=== PATIENT | male | born 1970 | race Caucasian/White ===

== ENCOUNTER 2025-06-30 08:35 | Emergency (ER) | payer BC, SELFPAY ==
--- NOTE | ~2025-06-30 | XR_ITS ---
XR foot RT min 3V 06/30/2025 09:24 Indication: No known injury. Right foot pain laterally. Procedure: 4 views right foot Comparison: No prior studies for comparison. Findings: No fracture, subluxation or dislocation. Lisfranc joint intact. No focal soft tissue abnorm ality. No foreign bodies. No soft tissue abnormality. No foreign bodies. Impression: 1: No acute bone or joint abnormality. Reviewed, dictated and finalized at location A. Impression: 1: No acute bone or joint abnormality.
--- OUTSIDE RECORDS SUMMARY | 2025-06-30 08:41 | XMS_ITS | Encounter Summary ---
Author Organization [facility] Address [address] [place] [address] Care Team Providers Care Clinical Law Professor Name Role Phone Fatou Chaudhry APN Primary Care Provider [phone] Riley Reaves DO Primary Care Provider [phone] Reason for Referral * Specialty Diagnoses / Procedures Referred By Carlos burnett Referred To Contact [facility]/ Referral ID Status Reason Start Date Expiration Date Visits Re quested Visits Authorized Encounter Details Date Type Department Care Team (Late st Contact Info) Description 01/28/2024 Outpatient Orders Only [facility] [address] [place] [phone] Fatou Chaudhry APN [address] [place] [address] [address] [place] [address] Social History Tobacco Use Types Packs/Day Years Used Date Smoking Tobacco: Never Passive Smoke Exposure: Never Smokeless Tobacco: Never Alcohol Use Standard Drinks/Week Comments Yes 0 (1 standard drink = 0.6 oz pur e alcohol) occasually Sex and Gender Information Value Date Recorded Sex Assigned at Not on file Legal Sex Male 16:17 EST Gender Identity Male 02/18/2024 7:35 EDT Sexual Orientation Unknown/Unavailable 7:56 EDT documented as of this encounter Plan of Treatment Upcoming Encounters Date Type Department Care Team (Late st Contact Info) Description 08/17/2025 9:00 EDT Office Visit [facility] [address] [place] [phone] Andres Frey MD [address] [place] [address] 6m follow up documented as of this encounter Procedures Procedure Name Priority Date/Time Associated Diagnosis Comments SCANNED EKG Routine 01/28/2024 16:06 EDT AMB REFERRAL TO CARDIOLOGY Routine 01/28/2024 14:47 EDT documented in this encounter Results * SCANNED EKG (01/28/2024 16:06 EDT) us Historical Provider ECG ORDERABLES Final Res ult * AMB REFERRAL TO CARDIOLOGY (01/28/2024 14:47 EDT) us Fatou Chaudhry APN OUTPATIENT REFERRAL ORDERABL ES Final Result documented in this encounter Visit Diagnoses Not on filedocumented in this encounter Care Teams Clinical Law Professor Relationship Specialty Start Date End Date Fatou Chaudhry APN [address] [facility] [place] [phone] PCP - General Nurse Practitioner 01/28/24 02/15/25 Riley Reaves DO [address] [place] [id number] PCP - General Family Medicine 02/16/25 documented as of this encounter
--- OUTSIDE RECORDS SUMMARY | 2025-06-30 08:41 | XMS_ITS | Encounter Summary ---
Author Organization [facility] Address [address] [place] [address] Care Team Providers Care Sr. Logistics Analyst Name Role Phone Jean Paul Riley Santiago ROB Primary Care Provider [phone] Encounter Details Date Type Department Care Team (Late Contact Info) Description 04/06/2025 Orders Only [facility] [address] [place] [phone] Provider, MD Camille [address] [place] [address] Social History Tobacco Use Types Packs/Day Years [...] 9:00 EDT Office Visit [facility] [address] [place] [phone] Andres Frey MD [address] [place] [phone] 6m follow up documented as of this encounter Procedures Procedure Name Priority Date/Time Associated Diagnosis Comments SCANNED EKG Routine 04/06/2025 10:10 EDT documented in this encounter Results * SCANNED EKG (04/06/2025 10:10 EDT) us Historical Provider ECG ORDERABLES Final Res ult documented in this encounter Visit Diagnoses Not on filedocumented in this encounter Care Teams Sr. Logistics Analyst Relationship Specialty Start Date End Date Riley Reaves DO [facility] [place] [address] [place] [id number] PCP - General Family Medicine 02/16/25 documented as of this encounter
--- OUTSIDE RECORDS SUMMARY | 2025-06-30 08:41 | XMS_ITS | Clinical Summary ---
Author Organization [facility] Address [address] [place] [address] Care Team Providers Care Food Service Helper Name Role Phone Riley Reaves DO Primary Care Provider [phone] Allergies No known active allergies Medications amLODIPine (NORVASC) 5 MG tabletIndicatio ns:Hypertension Take 5 mg daily by mouth Active atorvastatin (LIPITOR) 10 MG tabletIndicatio ns:Hyperlipidem ia Take 10 mg daily at 6pm by mouth Active olmesartan-hydr ochlorothiazide (BENICAR HCT) 40-12.5 MG per tabletIndicatio ns:Hypertension Take one Tablet daily by mouth 90 Tablet 1 5 Active acetaminophen (TYLENOL) 325 MG tabletIndicatio ns:Pain Take two Tablets (650 mg) every 4 hours as needed by mouth Indications: Pain 5 Active docusate sodium 100 MG CAPSIndications :Constipation Take one Capsule (100 mg) 2 times daily by mouth Indications: Constipation 5 Active sennosides (SENOKOT) 8.6 mg tabletIndicatio ns:Constipation Take two Tablets daily by mouth Indications: Constipation 5 Active gabapentin (NEURONTIN) 100 MG capsuleIndicati ons:Neuropathic Pain Take one Capsule (100 mg) every 12 hours by mouth Indications: Neuropathic Pain 5 Active celecoxib (CELEBREX) 200 MG capsuleIndicati ons:Inflammatio n Take one Capsule (200 mg) 2 times daily by mouth Indications: Inflammation 30 Capsule 5 Active cyclobenzaprine (FLEXERIL) 10 MG tabletIndicatio ns:Muscle Spasm Take one Tablet (10 mg) 3 times daily as needed by mouth for Muscle Spasms Indications: Muscle Spasm 30 Tablet Active oxyCODONE immediate release (ROXICODONE) 5 MG immediate release tabletIndicatio ns:s/p spine surgery 04/17/2025 Take one Tablet (5 mg) every 4 hours as needed by mouth Indications: s/p spine surgery 04/17/2025 30 Tablet Active Active Problems Problem Noted Date Diagnosed Date Needs pre-anesthesia assessment 04/17/2025 Primary hypertension 04/17/2025 Mixed hyperlipidemia 04/17/2025 Encounters Date Type Department Care Team Description 04/17/2025 15:40 EDT - 04/17/2025 20:44 EDT Surgery [facility] at [address] [address] Leo Mcclellan MD RIGHT SIDED LUMBAR 4-5 MINIMALLY INVASIVE TRANSFORAMINAL LUMBAR INTERBODY FUSION, NEUROMONITORING 04/17/2025 14:58 EDT Anesthesia Event [facility] at [address] [address] Dorian Santillan MD 04/17/2025 13:49 EDT - 04/18/2025 12:00 EDT Hospital Encounter [facility] at [address] [address] Leo Mcclellan MD Discharge Disposition: Home or Self Care 04/17/2025 Orders Only [facility] [address] [place] [id number] Physician, Not On Staff, 04/17/2025 Travel 04/06/2025 9:30 EDT Office Visit [facility] [address] [place] [phone] Andres Frey MD Pre-operative cardiovascular examination (Primary Dx); Essential hypertension, benign; Mixed hyperlipidemia 04/06/2025 Orders Only [facility] [address] [place] [phone] Provider, MD Camille 04/06/2025 Travel from Last 3 Months Family History Medical History Relation Name Comments High Blood Pressure Father Relation Name Status Comments Father Mother Alive Social History Tobacco Use Types Packs/Day Years Used Date Smoking Tobacco: Never Passive Smoke Exposure: Never Smokeless Tobacco: Never Tobacco Cessation:Counseling Given: Not Answered Alcohol Use Standard Drinks/Week Comments Yes 0 (1 standard drink = 0.6 oz pur e alcohol) occasually Sex and Gender Information Value Date Recorded Sex Assigned at Not on file Legal Sex Male 16:17 EST Gender Identity Male 02/18/2024 7:35 EDT Sexual Orientation Unknown/Unavailable 7:56 EDT Last Filed Vital Signs Vital Sign Reading Time Taken Comments Blood Pressure 101/55 04/18/2025 0515 EDT Pulse 68 04/18/2025 0515 EDT Temperature 36.8 C (98.3 F) 04/18/2025 0515 EDT Respiratory Rate 16 04/18/2025 0515 EDT Oxygen Saturation 96% 04/18/2025 0515 EDT Inhaled Oxygen Concentration - - Weight 103.2 kg (227 lb 9.6 oz) 04/17/2025 1403 EDT Height 188 cm (6' 2) 04/17/2025 1403 EDT Body Mass Index 29.22 04/17/2025 1403 EDT Plan of Treatment Upcoming Encounters Date Type Department Care Team ([facility] st Contact Info) Description 08/17/2025 9:00 EDT Office Visit [facility] [address] [place] [phone] Andres Frey MD [address] [place] [phone] 6m follow up Health Maintenance Due Date Last Done Comments Wellness Exam 02/07/1971 Yearly Depression Screen 1980 TETANUS / TDAP SHOT 02/07/1987 Colonoscopy 2008 Colorectal Cancer Screening [address] Colonography 02/07/2018 FIT-DNA 02/07/2018 Fecal Occult Blood Test (FOBT) 02/07/2018 Pneumococcal Immunization 50 + (1 of 1 - PCV) 02/07/2018 Shingrix Vaccine (1 of 2) 02/07/2018 COVID-19 (SARS-CoV-2) Vaccin e ( season) 2024 05/07/2021, 04/09/2021 FLU VACCINE (#1) 07/16/2025 Meningococcal Vaccine Aged Out No italia rosa eligible based on patient's age to complete this topic Medical Devices Implanted Type Area Circular Saw Edge Fuser Device Identifier Shelf Expiration Date Model / Serial / Lot Graft Bone Strip Cancellous Fd Lifeflex [id number] - [id number] Implanted:Qty: 1 on 04/17/2025 by Leo Mcclellan MD at [facility] ([facility]3] Bone N/A: Spine Lumbar [employer] 09/02/2029 [id number] / [id number] / NA Graft Bone Strip Cancellous Fd Lifeflex [id number] - [id number] Implanted:Qty: 1 on 04/17/2025 by Leo Mcclellan MD at [facility] ([facility]3] Bone N/A: Spine Lumbar [employer] 09/16/2029 [id number] / [id number] / NA Graft Bone Fiber Cortical Fd Lifeflex 5cc [id number] - [id number] Implanted:Qty: 1 on 04/17/2025 by Leo Mcclellan MD at [facility]3] Bone N/A: Spine Lumbar [employer] 09/29/2029 [id number] / [id number] / NA Graft Bone Allogeneic Osteofactor Protein [id number] - [id number] Implanted:Qty: 1 on 04/17/2025 by Leo Mcclellan MD at [facility]3] Graft N/A: Spine Lumbar [employer] 11/26/2029 [id number] / [id number] / NA Graft Bone Filler Osteofactor [id number] - [id number] Implanted:Qty: 1 on 04/17/2025 by Leo Mcclellan MD at [facility]3] Graft N/A: Spine Lumbar [employer] 12/10/2029 [id number] / [id number] / NA Graft Bone Filler Osteofactor [id number] - [id number] Implanted:Qty: 1 on 04/17/2025 by Leo Mcclellan MD at [facility]3] Graft N/A: Spine Lumbar [employer] 12/10/2029 [id number] / [id number] / NA Graft Bone Infuse Xs Rhbmp-2 Kit Lumbar Tapered - [id number] Implanted:Qty: 1 on 04/17/2025 by Leo Mcclellan MD at [facility]3] Other - impl N/A: Spine Lumbar [employer] 05/15/2026 [id number] / / [id number] Graft Bone Sleeve Filler Fd Alphagraft 6cc Fibers [id number] - [id number] Implanted:Qty: 1 on 04/17/2025 by Leo Mcclellan MD at [facility]3] Other - impl N/A: Spine Lumbar [employer] SPINE FKA [employer]PH[employer] 11/16/2027 [id number] / [id number] / NA Implant Graft Bone Filler Tcp Bioactive Moldable Latex Free Sterile Bio Reign 3d 5cc - [id number] Implanted:Qty: 1 on 04/17/2025 by Leo Mcclellan MD at [facility]3] Other - impl N/A: Spine Lumbar [employer] 06/14/2027 [id number] / / [id number] Screw Spinal Posterior Lumbar Polyaxial Reduction Tulip Modular Extended Tab Invictus Titanium [id number] - [id number] Implanted:Qty: 2 on 04/17/2025 by Leo Mcclellan MD at [facility]3] Other - impl Right: Spine Lumbar [employer] (old) 04/17/2026 [id number] / / N/A Alberto Spinal Thoracolumbar Lordotic Mis Vi2 Invictus 5.5x35mm Titanium [id number] - [id number] Implanted:Qty: 1 on 04/17/2025 by Leo Mcclellan MD at [facility]3] Other - impl Right: Spine Lumbar [employer] (old) 04/17/2026 [id number] 35 / / N/A Alberto Spinal Thoracolumbar Lordotic Mis Vi2 Invictus 5.5x40mm Titanium [id number] - [id number] Implanted:Qty: 1 on 04/17/2025 by Leo Mcclellan MD at [facility]3] Alberto Right: Spine Lumbar [employer] (old) 04/17/2026 [id number] 40 / / N/A Screw Set - [id number] Implanted:Qty: 4 on 04/17/2025 by Leo Mcclellan MD at [facility]3] Screw Right: Spine Lumbar [employer] (old) 04/17/2026 [id number] / / N/A Screw Spinal Pedicle Polyaxial Reduction Extended Tab Cannulated Invictus 6.5x45mm Titanium [id number] - [id number] Implanted:Qty: 2 on 04/17/2025 by Leo Mcclellan MD at [facility]3] Screw Right: Spine Lumbar [employer] (old) 04/17/2026 [id number] / / N/A Graft Tissue Connective Inject Latex Free Sterile Flow 4.0cc - [id number] Implanted:Qty: 1 on 04/17/2025 by Leo Mcclellan MD at [facility]3] N/A: Spine Lumbar [employer] 02/20/2029 FL-[id number] / [id number] / Cage Spinal Lumbar 20 Degree Plif Expandable Calibrate Nanotec Psx [id number] Titanium [id number] - [id number] Implanted:Qty: 1 on 04/17/2025 by Leo Mcclellan MD at [facility]3] N/A: Spine Lumbar [employer] (old) 03/03/2029 [id number]-[id number] / / [id number] Shank, Invictus Mis Mod Screw 6.5x45mm Implanted:Qty: 2 on 04/17/2025 by Leo Mcclellan MD at [facility]3] Right: Spine Lumbar [employer] FKA [employer] 04/17/2026 [id number] / / N/A Shank, Invictus Mis Mod Screw 6.5x40mm Implanted:Qty: 1 on 04/17/2025 by Leo Mcclellan MD at [facility]3] Right: Spine Lumbar [employer] FKA [employer] 04/17/2026 [id number] / / N/A Procedures Procedure Name Priority Date/Time Associated Diagnosis Comments CBC AND DIFFERENTIAL Routine 04/18/2025 7:59 EDT BASIC METABOLIC PANEL Routine 04/18/2025 7:59 EDT CBC W/AUTOMATED DIFF Routine 04/18/2025 7:[address] LUMBAR SPINE WO CONTRAST Routine 04/17/2025 22:59 EDT XR FLUORO GREATER THAN 1 HOUR Routine 04/17/2025 17:16 EDT PORTABLE XR LUMBAR SPINE 2OR3 VIEWS Routine 04/17/2025 17:15 EDT INTUBATION Routine 04/17/2025 15:05 EDT TRANSFORAMINAL LUMBAR INTERBODY FUSION (TLIF) 04/17/2025 14:55 EDT LUMBAR STENOSIS LUMBAR RADICULOPATHY LUMBAR INSTABILITY Case Notes 23 HOUR STAY SCANNED EKG Routine 04/06/2025 10:10 EDT from Last 3 Months Results * (ABNORMAL) CBC AND DIFFERENTIAL (04/18/2025 7:59 EDT) White Blood Cells 13.8(H) 4.0 - 11.0 10*3/uL 04/18/2025 9:13 [facility] Red Blood Cells 4.40 4.20 - 5.90 10*6/uL 04/18/2025 9:13 [facility] Hemoglobin 14.2 13.0 - 17.0 g/dL 04/18/2025 9:13 [facility] Hematocrit 41.8 38.7 - 50.0 % 04/18/2025 9:13 [facility] Mean Corpuscular Volume 95.1 80.0 - 100.0 fL 04/18/2025 9:13 [facility] Mean Corpuscular Hemoglobin 32.3 25.0 - 34.0 pg 04/18/2025 9:13 [facility] Mean Corpuscular Hemoglobin Concentration 34.0 32.0 - 36.0 g/dL 04/18/2025 9:13 [facility] Red Cell Distribution Width 12.8 11.5 - 14.5 % % 04/18/2025 9:13 [facility] Platelet Count 173 135 - 430 10*3/uL 04/18/2025 9:13 [facility] Mean Platelet Volume 8.2 7.4 - 10.4 fL 04/18/2025 9:13 [facility] Neutrophils, Percent 89.50(H) 40.00 - 75.00 % 04/18/2025 9:13 [facility] Lymphocytes, Percent 4.30(L) 13.00 - 43.00 % 04/18/2025 9:13 [facility] Monocytes, Percent 6.10 1.00 - 13.00 % 04/18/2025 9:13 [facility] Eosinophils, Percent Automated 0.00 0.00 - 5.00 % 04/18/2025 9:13 [facility] Basophils, Percent 0.10 0.00 - 2.00 % 04/18/2025 9:13 [facility] Neutrophils, Absolute 12.40(H) 1.60 - 8.30 10*3/uL 04/18/2025 9:13 [facility] Lymphocytes, Absolute 0.60 0.50 - 4.70 10*3/uL 04/18/2025 9:13 [facility] Monocytes, Absolute 0.80 0.40 - 1.40 10*3/uL 04/18/2025 9:13 [facility] Eosinophils, Absolute 0.00 0.00 - 0.60 10*3/uL 04/18/2025 9:13 [facility] Basophils, Absolute 0.0 0 - 0.2 10*3/uL 04/18/2025 9:13 [facility] Nucleated Red Blood Cells 0 0 - 5 % 04/18/2025 9:13 [facility] Blood Venipuncture / Unknown 04/18/2025 7:59 EDT 04/18/2025 8:56 EDT us Leo Mcclellan MD HEMATOLOGY ORDERABLES Final Re sult [facility] [address] [phone] * (ABNORMAL) BASIC METABOLIC PANEL (04/18/2025 7:59 EDT) Glucose 142(H) 74 - 100 mg/dL 04/18/2025 9:32 T [facility] Sodium 137 136 - 145 mmol/L 04/18/2025 9:32 [facility] Potassium 4.4 3.5 - 5.1 mmol/L 04/18/2025 9:32 [facility] Chloride 103 98 - 107 mmol/L 04/18/2025 9:32 [facility] Carbon Dioxide 27 22 - 29 mmol/L 04/18/2025 9:32 [facility] BUN 18 8 - 26 mg/dL 04/18/2025 9:32 [facility] Creatinine 0.98 0.30 - 1.50 mg/dL 04/18/2025 9:32 [facility] eGFR >=60 >=60 mL/min/1.7 3m*2 04/18/2025 9:32 [facility] Calcium 8.7 8.4 - 10.2 mg/dL 04/18/2025 9:32 [facility] Anion GAP 7 5 - 15 mmol/L 04/18/2025 9:32 [facility] Blood Venipuncture / Unknown 04/18/2025 7:59 EDT 04/18/2025 8:56 EDT Narrative [facility] - 04/18/2025 9:32 EDT eGFR is based on the CKD-EPI 2020 equation that does not use a race coefficient. See the provided link for more education on the subject. [email or web address] us Leo Mcclellan MD CHEMISTRY ORDERABLES Final Res ult [facility] [address] [place] [address], [facility] [phone] * CT LUMBAR SPINE WITHOUT CONTRAST (04/17/2025 22:59 EDT) Anatomical Region Laterality Modality L-spine N/A Computed Tomogra phy 04/18/2025 0:26 EDT Impressions 04/18/2025 0:31 EDT 1. Status post interval anterior and posterior spinal fusion at L4-5 in addition to right-sided hemilaminectomy and facetectomy. 2. Broad-based disc protrusion at L3-4 slightly eccentric to the left. Narrative 04/18/2025 0:31 EDT HISTORY: Spinal fusion, lumbar, follow up TECHNIQUE: CT lumbar spine without intravenous contrast. Thin section acquisition with multiplanar coronal and sagittal reformatted images. Radiation dose to the patient was optimized by adjusting the mA and/or kV according to patient size. Iterative reconstruction technique was employed to improve image quality when applicable. All required CT data elements were submitted to a radiology data registry using standardized nomenclature. CT Dose (Total DLP): 882 mGy.cm COMPARISON: Comparison is made with the previous magnetic resonance examination of the lumbar spine performed at an outside institution on February 22, 2025. FINDINGS: LUMBAR SPINE: CURVATURE/ALIGNMENT/NUMBERING: Preserved lumbar lordotic curvature. Minimal grade 1 retrolisthesis of L4 on L5 is again seen. 5 lumbar type vertebral bodies are present. The most caudal fully formed disc space is designated L5-S1. BONES: In the interval from prior examination, the patient has undergone anterior and posterior spinal fusion at L4-5 in addition to right-sided hemilaminectomy and facetectomy. Bilateral metallic rods and pedicle screws are in place. The hardware appears intact. Intervertebral spacer is also seen at the L4-5 level. Lumbar vertebral body heights are maintained. No compression deformity or acute fracture is present. PARASPINAL/RETROPERITONEAL SOFT TISSUES: Expected postprocedural subcutaneous emphysema is seen. INTERVERTEBRAL DISCS/FACETS: T12-L1: No disc herniation, central spinal canal narrowing, or neural foraminal stenosis. L1-L2: No disc herniation, central spinal canal narrowing, or neural foraminal stenosis. L2-L3: Mild flattening of the ventral thecal sac is seen. No spinal canal or foraminal compromise is identified. L3-L4: Broad-based disc protrusion is again noted slightly eccentric to the left resulting in contour deformity of the thecal sac. Superimposed facet osteoarthropathy is seen and there is bilateral lateral recess narrowing. Asymmetric inferior foraminal narrowing is also seen, left greater than right. L4-L5: As noted above, the patient is status post interval anterior and posterior spinal fusion. Associated streak artifact related to fusion hardware limits evaluation. A right hemilaminectomy defect and facetectomy is seen. No spinal canal compromise is identified. L5-S1: Mild broad-based bulging disc is seen. Minimal deformity of the thecal sac is noted. No spinal canal or foraminal compromise is identified. Procedure Note Danish Bills MD - 04/18/2025 HISTORY: Spinal fusion, lumbar, follow up TECHNIQUE: CT lumbar spine without intravenous contrast. Thin sectionacquisition with multiplanar coronal and sagittal reformatted images.Radiation dose to the patient was optimized by adjusting the mA and/or kVaccording to patient size. Iterative reconstruction technique was employedto improve image quality when applicable. All required CT data elementswere submitted to a radiology data registry using standardizednomenclature. CT Dose (Total DLP): 882 mGy.cm COMPARISON: Comparison is made with the previous magnetic resonanceexamination of the lumbar spine performed at an outside institution onApr2024. FINDINGS: LUMBAR SPINE: CURVATURE/ALIGNMENT/NUMBERING: Preserved lumbar lordotic curvature. Minimal grade 1 retrolisthesis of L4 on L5 is again seen. 5 lumbar type vertebral bodies are present. The most caudal fully formeddisc space is designated L5-S1. BONES: In the interval from prior examination, the patient has undergone anteriorand posterior spinal fusion at L4-5 in addition to right-sidedhemilaminectomy and facetectomy. Bilateral metallic rods and pediclescrews are in place. The hardware appears intact. Intervertebral spacer isalso seen at the L4-5 level. Lumbar vertebral body heights are maintained. No compression deformity oracute fracture is present. PARASPINAL/RETROPERITONEAL SOFT TISSUES: Expected postproceduralsubcutaneous emphysema is seen. INTERVERTEBRAL DISCS/FACETS: T12-L1: No disc herniation, central spinal canal narrowing, or neuralforaminal stenosis. L1-L2: No disc herniation, central spinal canal narrowing, or neuralforaminal stenosis. L2-L3: Mild flattening of the ventral thecal sac is seen. No spinal canalor foraminal compromise is identified. L3-L4: Broad-based disc protrusion is again noted slightly eccentric tothe left resulting in contour deformity of the thecal sac. Superimposedfacet osteoarthropathy is seen and there is bilateral lateral recessnarrowing. Asymmetric inferior foraminal narrowing is also seen, leftgreater than right. L4-L5: As noted above, the patient is status post interval anterior andposterior spinal fusion. Associated streak artifact related to fusionhardware limits evaluation. A right hemilaminectomy defect and facetectomyis seen. No spinal canal compromise is identified. L5-S1: Mild broad-based bulging disc is seen. Minimal deformity of thethecal sac is noted. No spinal canal or foraminal compromise isidentified. IMPRESSION: 1. Status post interval anterior and posterior spinal fusion at L4-5 inaddition to right-sided hemilaminectomy and facetectomy. 2. Broad-based disc protrusion at L3-4 slightly eccentric to the left. Leo CABRERA CT ORDERABLES Final Result * XR FLUORO GREATER THAN 1 HOUR (04/17/2025 17:16 EDT) Narrative [facility] - 04/17/2025 17:16 EDT Fluoroscopy provided for the operating room. Please refer to the operative report. Leo CABRERA DIAGNOSTIC IMAGING ORDERAB LES Final Result [facility] * PORTABLE XR LUMBAR SPINE 2 VIEWS (04/17/2025 17:15 EDT) Anatomical Region Laterality Modality L-spine N/A Radiographic Elida ging 04/17/2025 17:3 6 EDT Impressions 04/17/2025 17:38 EDT 1. Intraoperative films. Narrative 04/17/2025 17:38 EDT HISTORY: Lumbar L-4 L-5 Decompression and Fusion TECHNIQUE: Intraoperative fluoroscopic assistance provided. A radiologist was not present during the procedure/surgery. 4 spot films submitted for review. Total fluoro time 2.0 minutes. Total Dose Area Product 24.4 Gycm2. COMPARISON: None available. FINDINGS: Fluoroscopic images demonstrate posterior fusion of the lumbar spine at presumed L4-L5. Please see operative/procedure report for complete details. Procedure Note Jovany Bledsoe MD - 04/17/2025 HISTORY: Lumbar L-4 L-5 Decompression and Fusion TECHNIQUE: Intraoperative fluoroscopic assistance provided. A radiologistwas not present during the procedure/surgery. 4 spot films submitted for review. Total fluoro time 2.0 minutes. TotalDose Area Product 24.4 Gycm2. COMPARISON: None available. FINDINGS: Fluoroscopic images demonstrate posterior fusion of the lumbar spine atpresumed L4-L5. Please see operative/procedure report for completedetails. IMPRESSION: 1. Intraoperative films. Leo Mcclellan MD IMG XR PORTABLE ORDERABLES Fin al Result * IN AN ETT AIRWAY PLACEMENT LDA (04/17/2025 15:05 EDT) Narrative Dorian Santillan MD - 04/17/2025 15:05 EDT Dorian Santillan MD 04/17/2025 17:54 Airway Date/Time: 04/17/2025 15:05 Reason: elective Airway not difficult General Information and Staff Patient location during procedure: OR Performed by: residents Patient Condition Indications for airway management: anesthesia and airway protection Patient position: sniffing MILS maintained throughout Sedation level: deep Final Airway Details Preoxygenated: yes Final airway type: endotracheal airway Successful airway: ETT Cuffed: yes Successful intubation technique: video laryngoscopy Adjuncts used in placement: intubating stylet Endotracheal tube insertion site: oral Blade: Rajani Blade size: #4 ETT size (mm): 7.5 Cormack-Lehane Classification: grade I - full view of glottis Placement verified by: chest auscultation and capnometry Cuff volume (mL): 8 Measured from: lips ETT to lips (cm): 22 Number of attempts at approach: 1 Number of other approaches attempted: 0 Additional Comments Atraumatic Dorian Santillan MD ANESTHESIA ORDERABLES Edited Res ult - Final * SCANNED EKG (04/06/2025 10:10 EDT) Historical Provider ECG ORDERABLES Final Res ult from Last 3 Months Insurance BCBS OUT OF AREA Care Teams Food Service Helper Relationship Specialty Start Date End Date Riley Reaves DO [facility] [place] [id number] PCP - General Family Medicine 02/16/25
--- OUTSIDE RECORDS SUMMARY | 2025-06-30 08:41 | XMS_ITS | Encounter Summary ---
Author Organization [facility] Address [address] [place] [address] Care Team Providers Care Senior Paralegal Name Role Phone Fatou Chaudhry APN Primary Care Provider [phone] Riley Reaves DO Primary Care Provider [phone] Encounter Details Date Type Department Care Team (Late st Contact Info) Description 08/25/2024 Outpatient Orders Only [facility] [address] [place] [address] [phone] ProviderCamille MD [address] [place] [address] Social History Tobacco Use Types [...] 9:00 EDT Office Visit [facility] [address] [place] [address] [phone] Andres Frey MD [address] [place] [address] [phone] 6m follow up documented as of this encounter Procedures Procedure Name Priority Date/Time Associated Diagnosis Comments SCANNED EKG Routine 08/25/2024 9:30 EDT documented in this encounter Results * SCANNED EKG (08/25/2024 9:30 EDT) us Historical Provider ECG ORDERABLES Final Res ult documented in this encounter Visit Diagnoses Not on filedocumented in this encounter Care Teams Senior Paralegal Relationship Specialty Start Date End Date Fatou Chaudhry APN [address] [facility] [place] [id number] PCP - General Nurse Practitioner 01/28/24 02/15/25 Riley Reaves DO [address] [place] [address] PCP - General Family Medicine 02/16/25 documented as of this encounter
--- OUTSIDE RECORDS SUMMARY | 2025-06-30 08:41 | XMS_ITS | Encounter Summary ---
Author Organization [facility] Address [address] [place] [address] Care Team Providers Care Ward Helper Name Role Phone Jean Paul Riley Santiago ROB Primary Care Provider [phone] Encounter Details Date Type Department Care Team (Late Contact Info) Description 02/16/2025 Orders Only [facility] [address] [place] [address] [phone] Provider, MD Camille [address] [place] [address] Social History Tobacco Use Types [...] 9:00 EDT Office Visit [facility] [address] [place] [address] [phone] Andres Frey MD [address] [place] [address] [phone] follow up documented as of this encounter Procedures Procedure Name Priority Date/Time Associated Diagnosis Comments SCANNED EKG Routine 02/16/2025 9:45 EDT documented in this encounter Results * SCANNED EKG (02/16/2025 9:45 EDT) us Historical Provider ECG ORDERABLES Final Res ult documented in this encounter Visit Diagnoses Not on filedocumented in this encounter Care Teams Ward Helper Relationship Specialty Start Date End Date Riley Reaves [place] [address] PCP - General Family Medicine 02/16/25 documented as of this encounter
--- OUTSIDE RECORDS SUMMARY | 2025-06-30 08:41 | XMS_ITS | Continuity of Care Document ---
Author Organization [facility] Address [address] [place] [address] Phone Care Team Providers Care Regulatory Affairs Intern Name Role Phone Tadeo BATRES, Fred Unavailable Unavailable Allergies, Adverse Reactions, Alerts Substance Reaction Status Criticality No Known Allergies Active No Inform ation Medications Medication Instructions Dosage Effective Dates (start - stop) Status Comments olmesartan 5 mg tablet take 2 tablet by oral route every day 10 MG - Active atorvastatin 10 mg tablet take 1 tablet by oral route every day 10 MG - Active Norvasc 5 mg tablet take 1 tablet by ora l route every day 5 MG - Active Procedures Procedure Date Offic/outpt E&m [place] [address] Offic/outpt E&m [place] [address] Advance Directives Directive Yes / No Effective Date File Name No Information Encounters Encounter Description Practice Location Reason(s) For Visit Diagnoses Date Provider Providers Copied on Encounter Offic/outpt E&m [address], [address] [place] [address], [id number], tel:[phone] PM Christiano Positive TANIA. (chief complaint) ATNIA positiveArthralgia of multiple jointsChronic fatigue 4 Tadeo Ibarra. [address] [place] [address], [id number], . tel:[phone] Offic/outpt E&m [address], [address] [place] [address], [id number], tel:[phone] Christiano Positive TANIA. (chief complaint) TANIA positiveArthralgia of multiple jointsChronic fatigue 4 Tadeo Ibarra. [address] [place], [address], . tel:[phone] Family History Family Member Type Diagnosis Age At Onset No Information Payers Payer name Insurance type Covered democrat ID Authoriza tion(s) BCBS PPO/Indemnity SPEC BL [id number] Social History Type Description Quantity Date Captured Comments Alcohol Use Details Unknown Caffeine Use Details Unknown Tobacco Use Status No Information Smoking Status No Information Sex Male Vital Signs Date / Time: Height Weight BMI Pulse Rate Blood Pressure Temperature Respiratory Rate Body Surface Area Head Circumference Head Circ. Percentile Wt./Michel. Percentile BMI percentile Pulse Ox Inhaled Ox 8:54 AM 74.00 in 105.233 kg (232.00 lbs) 29.7 9 kg/m eter (2) 66 /min 123/81 mm[Hg] 2.34 meter(2) 99 % Chief Complaint And Reason For Visit From encounter dated '02/02/2024 09:00'. Positive TANIA. (chief complaint). Description: Patient is a 53-year-old male who is here for follow up. Referred by Laura Madden for positive TANIA.Around 08/2023, patient was in [place] when he developed sudden onset of pain and swelling near his right ankle. Had trouble putting weight on it. Was treated with steroids and antibiotics for possible cellulitis. Symptoms lasted for about total of 4 days. Patient also noticed a bump over the inflamed area so he thought it could have been due to aspider bite. During that time, he was also found to have high blood pressure for which he followed up with his primary care doctor, who ordered blood work that came back positive for TANIA.Repeat TANIA ne gative with negative subserologies. Normal ESR, CRP.Of note, patient also has history of left firsttoe pain. He first noticed left toe pain around year 2020. He played soccer in the morning and had trouble walking by the end of the day. Went to see podiatry who diagnosed him with arthritis and gave him a steroid injection with resolution of symptoms. History of 2 steroid injections by podiatry.No other joint pain or swelling.Denies having any hair loss, oral ulcers, rashes, photosensitivity, Raynaud's, dry eyes, dry mouth, chest pain, shortness of breath, abdominal pain, nausea, vomiting, diarrhea, hematuria, hemoptysis.No personal or family history of psoriasis, IBD, uveitis.No family history of autoimmune disease.Occupation: consulting sales executive Reason For Referral Reason For Referral No Information Plan Of Treatment Date Type Action Status Goal Cologuard. Due on due Goal Influenza vaccine. Due on due Goal Colonoscopy. Due on due Goal Lung Cancer Screening (LDCT) . Due on due Goal FIT-DNA. Due on due Goal Lipid panel. Due on due Goal Zoster vaccine (1st). Due on due Goal Tdap. Due on due Goal PSA Test. Due on due Goal Depression screening. Due on due Goal FOBT. Due on due Goal Unhealthy drug use screening . Due on due Goal FIT. Due on due Goal Hepatitis C screening. Due o n due Goal CT-Colonography. Due on due Goal Td vaccine. Due on due Goal FOBT. Due on due Goal Depression screening. Due on due Goal PSA Test. Due on due Goal Tdap. Due on due Goal Lipid panel. Due on due Goal FIT-DNA. Due on due Goal Lung Cancer Screening (LDCT) . Due on due Goal Colonoscopy. Due on due Goal Influenza vaccine. Due on due Goal Cologuard. Due on due Goal Unhealthy drug use screening . Due on due Goal FIT. Due on due Goal Hepatitis C screening. Due o n due Goal CT-Colonography. Due on due Goal Td vaccine. Due on due History Of Present Illness Encounter Date Complaint History Of Prese nt Illness Positive TANIA. Patient is a 53- year-old male who is here for follow up. Referred by Laura Madden for positive TANIA.Around 08/2023, patient was in [place] when he developed sudden onset of pain and swelling near his right ankle. Had trouble putting weight on it. Was treated with steroids and antibiotics for possible cellulitis. Symptoms lasted for about total of 4 days. Patient also noticed a bump over the inflamed area so he thought it could have been due to a spider bite. During that time, he was also found to have high blood pressure for which he followed up with his primary care doctor, who ordered blood work that came back positive for TANIA.Repeat TANIA negative with negative subserologies. Normal ESR, CRP.Of note, patient also has history of left first toe pain. He first noticed left toe pain around year 2020. He played soccer in the morning and had trouble walking by the end of the day. Went to see podiatry who diagnosed him with arthritis and gave him a steroid injection with resolution of symptoms. History of 2 steroid injections by podiatry.No other joint pain or swelling.Denies having any hair loss, oral ulcers, rashes, photosensitivity, Raynaud's, dry eyes, dry mouth, chest pain, shortness of breath, abdominal pain, nausea, vomiting, diarrhea, hematuria, hemoptysis.No personal or family history of psoriasis, IBD, uveitis.No family history of autoimmune disease.Occupation: [employer] Positive TANIA. Patient is a 53- year-old male who is here for initial visit. Referred by Laura Madden for positive TANIA.Around 08/2023, patient was in [place] when he developed sudden onset of pain and swelling near his right ankle. Had trouble putting weight on it. Was treated with steroids and antibiotics for possible cellulitis. Symptoms lasted for about total of 4 days. Patient also noticed a bump over the inflamed area so he thought it could have been due to a spider bite. During that time, he was also found to have high blood pressure for which she followed up with his primary care doctor, who ordered blood work that came back positive for TANIA.Of note, patient also has history of left first toe pain. He first noticed left toe pain around year 2020. He played soccer in the morning and had trouble walking by the end of the day. Went to see podiatry who diagnosed him with arthritis and gave him a steroid injection with resolution of symptoms. History of 2 steroid injections by podiatry.No other joint pain or swelling.Denies having any hair loss, oral ulcers, rashes, photosensitivity, Raynaud's, dry eyes, dry mouth, chest pain, shortness of breath, abdominal pain, nausea, vomiting, diarrhea, hematuria, hemoptysis.No personal or family history of psoriasis, IBD, uveitis.No family history of autoimmune disease.Occupation: [employer] Functional Status Date Functional Assessmen t No Information Instructions Date Instruction Additional Infor anna -Patient presented w ith positive TANIA. Overall suspicion for CTD is low. Repeat TANIA negative with negative subserologies.-Uric acid of 6.5. Discussed symptoms to monitor for gout. -f/u with me as needed. Related to TANIA positive -Patient presents wi th positive TANIA. My overall suspicion for connective tissue disease is currently low given lack of clinical features, but needs further workup.-He does have history that is somewhat concerning for possible gout. He previously had episodes of sudden onset of severe left first toe pain for which he required steroid injections. Although recent right foot pain and swelling was treated as possible infection, it could have been a possible gout flare.-Check blood work including uric acid for further [id number]-[id number] in 2 to 3 weeks. Blood work now. Related to TANIA positive Assessments Type Assessment Date assessment TANIA positive assessment Arthralgia of multiple joints Ma assessment Chronic fatigue Patient Care Teams Name Effective Dates (start - stop) Status Members No Information
--- OUTSIDE RECORDS SUMMARY | 2025-06-30 08:41 | XMS_ITS | Clinical Summary ---
Author Organization [facility] Address [address] [place] [address] Care Team Providers Care Shipping Receiving Manager Name Role Phone Pcp, No Primary Care Provider Unavailabl e Social History Tobacco Use Types Packs/Day Years Used Date Smoking Tobacco: Never Assessed Sex and Gender Information Value Date Recorded Sex Assigned at Not on file Legal Sex Male 9:12 AM EDT Gender Identity Not on file Sexual Orientation Not on file Plan of Treatment Health Maintenance Due Date Last Done Comments Preventative/Well Visit 02/07/1970 [facility] ANNUAL DEPRESSION SCREENING 1980 [facility] BLOOD PRESSURE 140/90 OR UNDER 02/07/1986 [facility] BMI DOCUMENTED 02/07/1986 [facility] TOBACCO CESSATION COUNSELING 02/07/1986 HEPATITIS C SCREENING 02/07/1986 [facility] ACCESS TO PREVENTIVE/AMBULATORY VISIT 988 COLOGUARD 02/07/2013 COLONOSCOPY 02/07/2013 COLORECTAL CANCER SCREENING 02/07/2013 FIT (Fecal Immunochemical Test) 02/07/2013 FOBT 02/07/2013 SIGMOIDOSCOPY 02/07/2013 [facility] COLON FOBT 02/07/2018 [facility] COLONOGRAPHY (CT) 02/07/2018 [facility] COLONOSCOPY 02/07/2018 [facility] FIT-DNA TEST 02/07/2018 [facility] FLEX SIGMOIDOSCOPY 02/07/2018 Colon Cancer Screenings 02/07/2018 PNEUMOCOCCAL VACCINE AGE 50+ (1 of 1 - PCV) 02/07/2018 Zoster Vaccines (Shingles) (1 of 2) 02/07/2018 COVID VACCINE (1 - season) 2024 INFLUENZA VACCINE 06/15/2025 Insurance [facility] OUT [facility] STATE Care Teams Shipping Receiving Manager Relationship Specialty Start Date End Date Pcp, No PCP - General 06/12/21
[2025-06-30 08:47] VITALS: BP 132/81; PULSE 79; RESP 14; TEMP 36.4; O2SAT 99
--- NOTE | 2025-06-30 09:20 | ED_ITS ---
HPI - Extremity Injury (Lower) General Chief Complaint: Extremity Injury, Lower Stated Complaint: Right Foot Pain and Swelling Time Seen by Provider: 06/30/25 08:40 Source: patient Mode of arrival: ambulatory Limitations: no limitations History of Present Illness HPI Narrative: 55-year-old male presents to [facility] complaints of pain to lateral aspect of his right foot. Patient reports he also has noticed slight swelling into his right ankle. Patient denies injury to his foot. Patient reports he had similar symptoms to 3 years ago while home in [place] and was given a 10 day course of antibiotics as well as an anti-inflammatory injection. Patient reports that did resolve symptoms. Patient is unsure of diagnosis at that time. Patient denies erythema, injury, numbness or tingling. MD complaint: other (right foot pain ) Onset (ago): day(s) (1) Relieving factors: rest Exacerbating factors: weight bearing and movement Other symptoms: none Related Data Home Medications ?Medication ?Instructions ?Recorded ?Confirmed ?Last Taken ?Type amlodipine 2.5 mg tablet (Norvasc) 2.5 mg PO DAILY 06/30/25 06/30/25 Unknown History atorvastatin 10 mg tablet (Lipitor) 10 mg PO DAILY 06/30/25 06/30/25 Unknown History olmesartan 5 mg tablet (Benicar) 5 mg PO DAILY 06/30/25 06/30/25 Unknown History Allergies Allergy/AdvReac Type Severity Reaction Status Date / Time No Known Allergies Allergy Verified 06/30/25 08:52 Review of Systems Constitutional: Constitutional: Denies chills, Denies fatigue, Denies fever(s) and Denies weakness ENT: Denies vertigo, Denies dizziness, Denies nasal congestion and Denies sore throat Cardiovascular: Cardiovascular: Denies chest pain Respiratory: Respiratory: Denies cough, Denies dyspnea and Denies wheezing Gastrointestinal: Gastrointestinal: Denies diarrhea, Denies nausea and Denies vomiting Genitourinary: Genitourinary: Denies dysuria Musculoskeletal: Musculoskeletal: Reports arthralgias and Reports joint swelling Comments: Right foot and ankle pain and swelling Neurologic: Denies dizziness, Denies syncope, Denies headache(s) and Denies focal weakness PMFSH Comments At time of signature, I agree with nursing past medical, surgical, social and family history. There is no relevant family history pertinent to the presenting complaint. Exam Const: General: healthy appearing and no acute distress Nutritional Appearance: well nourished Orientation/consciousness: patient oriented x3 Limitations: no limitations HENMT: Head: normal to inspection Eyes: Conjunctivae: conjunctivae normal Neck: Neck: normal visual inspection Resp: Effort & Inspection: normal respiratory effort and not labored Auscultation: clear to auscultation bilaterally, no crackles, no rales and no rhonchi Cardio: Rate: regular rate Rhythm: regular rhythm Heart sounds: no murmurs Skin: General skin exam: normal color Rashes: no rashes Wounds: no wounds Neuro: General: patient oriented x3 and moves all extremities Speech: normal speech Gait exam (Neuro): Normal gait present Extrem: General: normal to inspection, no clubbing, cyanosis or edema and no pedal edema Other: No obvious swelling noted to right foot and ankle. Pulses are within normal limits. Full range of motion noted to right foot. There is mild pain noted to lateral aspect of right foot upon palpation. Psych: Affect: normal affect Attitude: cooperative Course Course Level of Care: Express Care Visit Vital Signs Vital signs: Vital Signs Temperature 36.4 C L 06/30/25 08:47 Pulse Rate 79 06/30/25 08:47 Respiratory Rate 14 06/30/25 08:47 Blood Pressure 132/81 06/30/25 08:47 Pulse Oximetry 99 06/30/25 08:47 Oxygen Delivery Room Air 06/30/25 08:47 Temperature 36.4 C L 06/30/25 08:47 Pulse Rate 79 06/30/25 08:47 Respiratory Rate 14 06/30/25 08:47 Blood Pressure 132/81 06/30/25 08:47 Pulse Oximetry 99 06/30/25 08:47 Oxygen Delivery Room Air 06/30/25 08:47 MDM - Extremity Injury (Lower) MDM Narrative Medical decision making narrative: X-ray results discussed with patient. Informed patient that antibiotics are not warranted at this time. Patient agrees to take anti-inflammatories as prescribed. Rice therapy discussed with patient. Encouraged patient to follow- up with primary care provider if symptoms not improved. Encouraged pt to proceed to emergency room if symptoms worsen Differential Diagnosis Differential diagnosis: Likely other (Fracture, cellulitis, strain) Imaging Data Radiologist's impression: Ordering Physician: Beverly Da Silva APRN Date of Service: 06/30/25 Procedure(s): XR foot RT min 3V Accession Number(s): [id number] cc: Beverly Da Silva APRN~ XR foot RT min 3V 06/30/2025 09:24 Indication: No known injury. Right foot pain laterally. Procedure: 4 views right foot Comparison: No prior studies for comparison. Findings: No fracture, subluxation or dislocation. Lisfranc joint intact. No focal soft tissue abnormality. No foreign bodies. No soft tissue abnormality. No foreign bodies. Impression: 1: No acute bone or joint abnormality. Reviewed, dictated and finalized at location A. Please be advised this is a medical document. It is intended for [id number] communication. It is written in medical language and may contain unfamiliar abbreviations or verbiage. Medical documents are intended to carry relevant information, facts as evident, and the clinical opinion of the practitioner at the time of the encounter. This report may have been done utilizing a voice recognition system. Attempts have been made to correct errors. However, there may be uncorrected grammatical, spelling, and recognition errors present. The file time of this note does not necessarily represent the time of service. Dictated By: Fly Hunter MD 06/30/25 0930 Signed By: <Electronically signed by Fly Hunter MD in OV> 06/30/25 0932 Critical Care Time Critical Care Time Critical Care Time: No Discharge Plan Discharge Clinical Impression: Acute foot pain Patient Disposition: Home Condition: Stable Instructions: Metatarsalgia (DC) Additional Instructions: Elevate right foot and apply ice to area of pain Do not take other NSAIDs while taking Meloxicam Follow-up with primary care provider if symptoms not improved Proceed to the emergency room if symptoms worsen Patient Language: Indonesian Prescriptions: New meloxicam 7.5 mg tablet 7.5 mg PO BID Qty: 20 0RF No Action amlodipine [Norvasc] 2.5 mg tablet 2.5 mg PO DAILY atorvastatin [Lipitor] 10 mg tablet 10 mg PO DAILY olmesartan [Benicar] 5 mg tablet 5 mg PO DAILY Follow-up/Referrals: PHYSICIAN NOT ON STAFF,NONSTAFF [Primary Care Provider] - Time of Disposition: 09:45
== END 2025-06-30 09:53 | disposition home or self-care (01) ==
PROVIDERS: Emergency Provider Nurse Practitioner Family
DX: M79.671 Pain in right foot (principal); I10 Essential (primary) hypertension; E78.00 Pure hypercholesterolemia, unspecified
CPT/HCPCS: 73630; 99213; G0463